=== PATIENT | male | born 2000 | race Caucasian/White ===

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

== ENCOUNTER 2022-09-15 18:09 | Emergency (ER) | payer OTHER ==
[~2022-09-15] VITALS: Ht 182.9 cm; Wt 68.0 kg
[2022-09-15] MEDS ORDERED: IBUP800 PO (19:31)
[2022-09-15] MEDS ORDERED: Percocet 5-3251 EACH PO (19:31)
== END 2022-09-15 19:57 | disposition home or self-care (01) ==
LOC: ER 18:09
DX: S62.002A Unspecified fracture of navicular [scaphoid] bone of left wrist, initial encounter for closed fracture (principal); V18.0XXA Pedal cycle driver injured in noncollision transport accident in nontraffic accident, initial encounter; F17.200 Nicotine dependence, unspecified, uncomplicated
CPT/HCPCS: 29125; 73110; 99283-25; A9270